=== PATIENT | female | born 1995 | race Hispanic/Latino ===

== ENCOUNTER 2025-03-30 00:43 | Emergency (ER) | payer OTHER ==
--- OUTSIDE RECORDS SUMMARY | 2025-03-30 00:47 | XMS REPORT | Continuity of Care Document ---
Author Name Unknown Address [address] [facility] [address] [place] [address] Organization [facility] [place] Address [address] [facility] 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 Name Role Phone Angelito Stephenson DO Primary Care Physician [phone] Humberto Wilson Attending Clinician + HUMBERTO AKERS Attending Clinician Shabbir Oswald MD Attending Clinician [phone] 1, Gh Attending Clinician Unavailable SHABBIR MARTIN Attending Clinician Unavailable GC_SWHAOMC_Noorudnurys Attending Clinician Unavail able WOLFGANG_JOANNAHAOMC_Noorlyric Admitting Clinician Unavail able Payers Payer Name Policy Type Policy Number Effective Date Expirati on Date Source [facility] CHOICE PLUS COMM [id number] 2024 00:00:00 [facility] [id number] 2022 00:00:00 Allergies, Adverse Reactions, Alerts Allergy Name Allergy Type Status Severity Reaction(s) Onset Date Inactive Date Treating Clinician Comments Source Fluconanilsa zimmerman Propensi ty to adverse reaction s Active Hives 01-11 00:00: 00 Alfonzo Pandey Social History Social Habit Start Date Stop Date Quantity Comments Source Gender identity 2023-09-03 15:18:02 Identifies as female gender (finding) Wang Pandey Sexual orientation [facility] ASSERTION Possible Wang Clementmisty Pandey Alcoholic beverage intake 2024-10-26 00:00:00 2024-10-26 00:00:00 .14 /d [facility] History of Social function 2024-10-26 00:00:00 2024-10-26 00:00:00 [facility] Tobacco use and exposure 2024-06-15 00:00:00 2024-06-15 00:00:00 Smokeless tobacco non-user [facility] Alcohol Comment 2024-06-15 00:00:00 2024-06-15 00:00:00 social drinker [facility] Sex 2023-09-03 15:18:02 2023-09-03 15:18:02 Female (finding) [facility] Smoking Status Start Date Stop Date Source Never smoked tobacco [facility] Medications Ordered Medication Name Filled Medication Name Start Date Stop Date Current Medication? Ordering Clinician Indication Dosage Frequency Signature (SIG) Comments Components Source levoFLOXaci n (Levaquin) 500 MG tablet levoFLOXaci n (Levaquin) 500 MG tablet 10-31 00:00: 00 11-10 23:59 :00 No 500mg QD Take 1 tablet by mouth 1 time each day for 10 days. Alfonzo Vaughan [facility] cefdinir (Omnicef) 300 MG capsule cefdinir (Omnicef) 300 MG capsule 10-26 00:00: 00 11-05 23:59 :00 No 300mg Q.5D Take 1 capsule by mouth in the morning and 1 capsule in the evening. Do all this for 10 days. Alfonzo Vaughan [facility] semaglutide (Ozempic, 1 MG/DOSE,) 4 MG/3ML solution pen-injecto r semaglutide (Ozempic, 1 MG/DOSE,) 4 MG/3ML solution pen-injecto r 06-15 11:09: 56 Yes INJECT ONE (1) MG UNDER THE SKIN ONE TIME PER WEEK. subcutaneo usly once a week for 28 days Alfonzo Vaughan [facility] nitrofurant oin, macrocrysta l-monohydra te, (Macrobid) 100 MG capsule nitrofurant oin, macrocrysta l-monohydra te, (Macrobid) 100 MG capsule 06-15 00:00: 00 Yes 1 tablet jennifer-inter course Alfonzo Vaughan [facility] phenazopyri dine (Pyridium) 100 MG tablet phenazopyri dine (Pyridium) 100 MG tablet 1-03 00:00: 00 06-22 23:59 :00 No 100mg [id number] 3D Take 1 tablet by mouth in the morning and 1 tablet at noon and 1 tablet in the evening. Do all this for 7 days. Alfonzo Vaughan [facility] Adderall 10 MG tablet Adderall 10 MG tablet 2023-06 0 00:00: 00 Yes 10mg Take [facility] [place] [facility] lisdexamfet amine (Vyvanse) 40 MG capsule lisdexamfet amine (Vyvanse) 40 MG capsule 3- 00:00: 00 06-15 00:00 :00 No 1{capsu le} 1 cap(s) orally once a day (in the morning) for 30 day(s) [facility] Macrobid 100 mg capsule Take 1 capsule every 12 hours by oral route for 5 days. Macrobid 100 mg capsule Take 1 capsule every 12 hours by oral route for 5 days. No 1capsul e(s) Q12H Macrobid 100 mg capsule Take 1 capsule every 12 hours by oral route for 5 days. [facility] Ozempic 0.25 mg or 0.5 mg (2 mg/1.5 mL) subcutaneou s pen injector INJECT 0.25 MG SUBCUTANEOU SLY ONCE A WEEK THEN INCREASE TO 0.5 MG ONCE A WEEK. Ozempic 0.25 mg or 0.5 mg (2 mg/1.5 mL) subcutaneou s pen injector INJECT 0.25 MG SUBCUTANEOU SLY ONCE A WEEK THEN INCREASE TO 0.5 MG ONCE A WEEK. No Ozempic 0.25 mg or 0.5 mg (2 mg/1.5 mL) subcutaneo us pen injector INJECT 0.25 MG SUBCUTANEO USLY ONCE A WEEK THEN INCREASE TO 0.5 MG ONCE A WEEK. [facility] Vital Signs Vital Name Observation Time Observation Value Comments S calixto Systolic blood pressure 2024-10-26 10:23:00 137 mm[Hg] [facility] Diastolic blood pressure 2024-10-26 10:23:00 82 mm[Hg] [facility] Epic Heart rate 2024-10-26 10:23:00 90 /min [facility] [place] Epic Body temperature 2024-10-26 10:23:[facility] 2024-10-26 10:23:00 56.881 kg Wolf rial [facility] Epic BMI 2024-10-26 10:23:00 21.52 kg/m2 [facility] Oxygen saturation in Arterial blood by Pulse oximetry 2024-10-26 10:23:00 98 /min [facility] Systolic blood pressure 2024-10-26 10:23:00 137 mm[Hg] [facility] Diastolic blood pressure 2024-10-26 10:23:00 82 mm[Hg] [facility] Heart rate 2024-10-26 10:23:00 90 /min [facility] [place] Epic Body temperature 2024-10-26 10:23:00 37 [facility] Body weight 2024-10-26 10:23:00 56.881 kg Wolf rial [facility] Epic BMI 2024-10-26 10:23:00 21.52 kg/m2 Wolf rial [place] Epic Oxygen saturation in Arterial blood by Pulse oximetry 2024-10-26 10:23:00 98 /min [facility] Systolic blood pressure 2024-07-05 15:35:00 122 mm[Hg] [facility] Diastolic blood pressure 2024-07-05 15:35:00 80 mm[Hg] [facility] Heart rate 2024-07-05 15:35:00 78 /min [facility] Body temperature 2024-07-05 15:35:00 36.89 [facility] Epic Respiratory rate 2024-07-05 15:35:00 22 /min [facility] Body height 2024-07-05 15:35:00 162.6 cm Wolf rial [place] Epic Body weight 2024-07-05 15:35:00 58.605 kg Wolf rial [facility] BMI 2024-07-05 15:35:00 22.18 kg/m2 [facility] Oxygen saturation in Arterial blood by Pulse oximetry 2024-07-05 15:35:00 100 /min [facility] Systolic blood pressure 2024-07-05 15:35:00 122 mm[Hg] [facility] Diastolic blood pressure 2024-07-05 15:35:00 80 mm[Hg] [facility] Heart rate 2024-07-05 15:35:00 78 /min [facility] [place] Epic Body temperature 2024-07-05 15:35:00 36.89 Twyla [facility] Epic Respiratory rate 2024-07-05 15:35:00 22 /min [facility] Body height 2024-07-05 15:35:00 162.6 cm Owlf rial [place] Epic Body weight 2024-07-05 15:35:00 58.605 kg Wolf rial [place] Epic BMI 2024-07-05 15:35:00 22.18 kg/m2 [facility] Oxygen saturation in Arterial blood by Pulse oximetry 2024-07-05 15:35:00 100 /min [facility] Systolic blood pressure 2024-06-15 11:01:00 122 mm[Hg] [facility] Diastolic blood pressure 2024-06-15 11:01:00 80 mm[Hg] [facility] Heart rate 2024-06-15 11:01:00 66 /min [facility] Respiratory rate 2024-06-15 11:01:00 17 /min [facility] Body weight 2024-06-15 11:01:00 72.031 kg Wolf rial [facility] Oxygen saturation in Arterial blood by Pulse oximetry 2024-06-15 11:01:00 100 /min [facility] Systolic blood pressure 2024-06-15 11:01:00 122 mm[Hg] [facility] Diastolic blood pressure 2024-06-15 11:01:00 80 mm[Hg] [facility] Heart rate 2024-06-15 11:01:00 66 /min [facility] [place] Epic Respiratory rate 2024-06-15 11:01:00 17 /min [facility] Body weight 2024-06-15 11:01:00 72.031 kg Wolf rial [place] Epic Oxygen saturation in Arterial blood by Pulse oximetry 2024-06-15 11:01:00 100 /min [facility] Height 2022-08-18 00:00:00 63 [in_i] [facility] BMI (Body Mass Index) 2022-08-18 00:00:00 25.9 kg/m2 [facility] Body Weight 2022-08-18 00:00:00 146 [lb_av] [facility] Procedures Procedure Date / Time Performed Performing Clinician Source Urine Culture 2024-11-02 00:00:00 Alfonzo tovar [facility] URINE CULTURE 2024-10-26 10:59:00 Sarah Akers [facility] POCT URINE DIPSTICK (INTRFC) 2024-10-26 10:40:00 Elida Cage [facility] URINE CULTURE 2024-10-22 10:07:00 Sarah Akers [facility] Urine Culture 2024-09-20 00:00:00 Alfonzo tovar [facility] POCT URINE DIPSTICK (INTRFC) 2024-07-05 15:38:00 Shabbir Martin [facility] US RETROPERITONEUM LIMITED 2024-07-05 15:17:11 Dalton Martin [facility] POCT URINE DIPSTICK (INTRFC) 2024-06-15 10:59:00 Shabbir Martin [facility] US retroperitoneum limited 2024-06-15 00:00:00 [facility] Comprehensive Metabolic Panel 2024-06-15 00:00:00 [facility] Hemoglobin A1c 2024-06-15 00:00:[facility] Complete Blood Count w/Diff and Platelet 2024-06-15 00:00:00 [facility] Urine culture [facility] Culture: Urine, Catheterized [facility] Urine Culture [facility] Plan of Care Planned Activity Planned Date Details Comments Source Diagnostic Test Pending 2022-08-18 00:00:00 unlisted lab [code = unlisted lab] [facility] Diagnostic Test Pending 2022-08-18 00:00:00 Clostridium tetani Ab [Presence] in Serum [code = 5093-0] [facility] Test Pending 2022-08-18 00:00:00 unlisted lab [code = unlisted lab] [facility] Test Pending 2022-08-18 00:00:00 unlisted lab [code = unlisted lab] [facility] Diagnostic Test Pending 2022-08-18 00:00:00 Malonate [Mass/volume] in Serum [code = 2603-9] [facility] Medical Encounters Start Date/Time End Date/Time Encounter Type Admission Type Attending [facility] Care Department Encounter ID Source 2024-10-31 00:00:00 2024-12-31 20:34:22 Results Follow-Up Humberto Akers [place] [address] 1.2.840.114 350.1.13.70 8.2.7.2.686 [id number] [facility]-10-25 00:00:00 2024-12-25 20:33:10 Results Follow-Up Humberto Akers [place] [address] 1.2.840.114 350.1.13.70 8.2.7.2.686 [id number] [facility] 2024-11-02 00:00:00 2024-11-02 09:10:43 Orders Only Humberto Akers [place] [address] [id number] 350.1.13.70 8.2.7.2.686 [id number] [facility] 2024-10-31 00:00:00 2024-10-31 08:48:59 Orders Only Humberto Akers [place] [address]31 1.2.840.114 350.1.13.70 8.2.7.2.686 [id number] [facility] 2024-10-26 10:15:09 2024-10-26 10:54:54 Outpatient Elective HUMBERTO AKERS [facility] [id number] EOUT 2024-10-26 10:00:00 2024-10-26 10:54:54 Office Visit Humberto Akers [place] [address] 1.2.840.114 350.1.13.70 8.2.7.2.686 [id number] Alfonzo tovar [facility] 2024-10-22 00:00:00 2024-10-23 20:44:35 Orders Only Humberto Akers [facility] 1.2.840.114 350.1.13.70 8.2.7.2.686 [id number] Memoria l [facility] 2024-09-20 00:00:00 2024-09-20 09:35:22 Orders Only Humberto Akers [facility] 1.2.840.114 350.1.13.70 8.2.7.2.686 [id number] Memoria la Clement [facility] 2024-06-18 00:00:00 2024-08-18 20:32:16 Results Follow-Up Shabbir Martin [facility] 1631 1.2.840.114 350.1.13.70 8.2.7.2.686 [id number] Memoria la [facility] 2024-07-05 14:41:35 2024-07-05 23:59:00 Outpatient Elective [facility] [id number] [facility] 2024-07-05 14:41:35 2024-07-05 23:59:00 Hospital Encounter 1, [facility] 1.2.840.114 350.1.13.70 8.2.7.2.686 [id number] [facility] 2024-07-05 15:45:00 2024-07-05 16:07:25 Office Visit Shabbir Martin [facility] 1631 1.2.840.114 350.1.13.70 8.2.7.2.686 [id number] Memoria l [facility] 2024-07-05 15:13:35 2024-07-05 16:07:25 Outpatient Elect[facility] [id number] [facility] 2024-06-15 11:00:00 2024-06-15 11:51:13 Consult Shabbir Martin [facility] 1631 1.2.840.114 350.1.13.70 8.2.7.2.686 [id number] Alfonzo tovar [facility] 2024-06-15 10:56:46 2024-06-15 11:51:13 Outpatient Elective [facility]ARTIN [facility] [id number] EOUT 2022-08-18 00:00:00 2022-08-18 00:00:00 Sully Romeo MD: [address] [place] [address], [address], [place] [address] , Ph. [facility] [id number] [facility] Medical Results Test Description Test Time Test Comments Results Result Co mments Source [facility] SocMetricsPOCT Urine Dipstick (INTRFC)2024-07-05 15:41:00* Test Item Value Reference Range Interpretation Comme nts POC UA Turbid (test code = 3180) Clear Clear POC UA Color (test code = 3179) Yellow Yellow POC UA pH (test code = 3187) 5.0-8.0 POC UA SG (test code = 3186) See_Comment [Automated No.1 Travellera ge] The system which generated this result transmitted reference range: <1.005 - 1.025. The reference range was not used to interpret this result as normal/abnormal. POC UA Glu (test code = 3181) Negative Negative mg/dL POC UA Bld (test code = 3192) Negative Negative POC UA Ket (test code = 3185) Negative Negative mg/dL POC UA Protein (test code = 3188) Negative Negative mg/dL POC UA Uro (test code = 3189) See_Comment [Automated No.1 Travellera ge] The system which generated this result transmitted reference range: 0.1 - 1.0 E.U./dL. The reference range was not used to interpret this result as normal/abnormal. POC UA Bili (test code = 3184) Negative Negative POC UA Leuk Est (test code = 3191) Negative Negative POC UA Nit (test code = 3190) Negative Negative POC Device (test code = 3198) POC Oper ID (test code = 3197) POC Performing Location (test code = 3249) [facility]2024-06-15 11:06:00* Test Item Value Reference Range Interpretation Comme nts POC UA Turbid (test code = 3180) Clear Clear POC UA Color (test code = 3179) Yellow Yellow POC UA pH (test code = 3187) 5.0-8.0 POC UA SG (test code = 3186) <=1.005 See_Comment [Automated No.1 Travellera Diffbot] The system which generated this result transmitted reference range: <1.005 - 1.025. The reference range was not used to interpret this result as normal/abnormal. POC UA Glu (test code = 3181) 250 mg/dL Negative A POC UA Bld (test code = 3192) Negative Negative POC UA Ket (test code = 3185) Trace Negative mg/dL A POC UA Protein (test code = 3188) >=300 Negative mg/dL A POC UA Uro (test code = 3189) >=8.0 See_Comment A [Automated No.1 Travellera Diffbot] The system which generated this result transmitted reference range: 0.1 - 1.0 E.U./dL. The reference range was not used to interpret this result as normal/abnormal. POC UA Bili (test code = 3184) Small Negative A POC UA Leuk Est (test code = 3191) Large Negative A POC UA Nit (test code = 3190) Positive Negative A POC Device (test code = 3198) POC Oper ID (test code = 3197) POC Performing Location (test code = 3249) [facility] Lab Interpretation (test code = 54944-4) Abnormal [facility] Notes Upcoming Encounters Date/Time Note Provider Source Health Maintenance Due Date Last Done Comments Varicella Vaccines (1 of 2 - 13+ 2-dose series) 2010 DTaP/Tdap/Td Vaccines (1 - Tdap) 02/23/2016 Hepatitis B Vaccines (1 of 3 - 19+ 3-dose series) 02/23/2016 Pap Smear 2018 HPV Vaccines (1 - 3-dose SCD M series) 02/23/2024 Influenza Vaccine (#1) 2025 Annual Physical 06/15/2025 06/15/2024 Respiratory Syncytial Virus (RSV) Adult Series (1 - 1-dose 75+ series) 02/23/2072 HIB Vaccines Aged Out No longer eligi ble based on patient's age to complete this topic Hepatitis A Vaccines Aged Out No long er eligible based on patient's age to complete this topic IPV Vaccines Aged Out No longer eligi ble based on patient's age to complete this topic Meningococcal Vaccine Aged Out No sarah pastora eligible based on patient's age to complete this topic Pneumococcal Vaccine: Pediat rics (0 to 5 Years) and At-Risk Patients (6 to 64 Years) Aged Out No longer eligible b ased on patient's age to complete this topic Rotavirus Vaccines Aged Out No longer eligible based on patient's age to complete this topic [facility] [id number] 20:34:56 [facility] CenterPbycana9213-08-13 20:37:42Upcoming Encounters Health Maintenance Due Date Last Done Comments Varicella Vaccines (1 of 2 - 13+ 2-dose series) 2010 DTaP/Tdap/Td Vaccines (1 - Tdap) 02/23/2016 Hepatitis B Vaccines (1 of 3 - 19+ 3-dose series) 02/23/2016 Pap Smear 2018 HPV Vaccines (1 - 3-dose SCD M series) 02/23/2024 Influenza Vaccine (#1) 2025 Annual Physical 06/15/2025 06/15/2024 Respiratory Syncytial Virus (RSV) Adult Series (1 - 1-dose 75+ series) 02/23/2072 HIB Vaccines Aged Out No longer eligi ble based on patient's age to complete this topic Hepatitis A Vaccines Aged Out No long er eligible based on patient's age to complete this topic IPV Vaccines Aged Out No longer eligi ble based on patient's age to complete this topic Meningococcal Vaccine Aged Out No sarah pastora eligible based on patient's age to complete this topic Pneumococcal Vaccine: Pediat rics (0 to 5 Years) and At-Risk Patients (6 to 64 Years) Aged Out No longer eligible b ased on patient's age to complete this topic Rotavirus Vaccines Aged Out No longer eligible based on patient's age to complete this topic [facility] [id number] 20:37:42 [facility] [id number] 09:10:54Upcoming Encounters Scheduled Orders Name Type Priority Associated Diagnoses Orde r Schedule Urine Culture Microbiology Routine Urinary urgency Expe cted: 11/02/2024 (Approximate), Expires: 11/02/2025 Health Maintenance Due Date Last Done Comments Varicella Vaccines (1 of 2 - 13+ 2-dose series) 2010 DTaP/Tdap/Td Vaccines (1 - Tdap) 02/23/2016 Hepatitis B Vaccines (1 of 3 - 19+ 3-dose series) 02/23/2016 Pap Smear 2018 Influenza Vaccine (Season Ended) 2025 Annual Physical 06/15/2025 06/15/2024 Respiratory Syncytial Virus (RSV) Adult Series (1 - 1-dose 75+ series) 02/23/2072 HIB Vaccines Aged Out No longer eligi ble based on patient's age to complete this topic HPV Vaccines Aged Out No longer eligi ble based on patient's age to complete this topic Hepatitis A Vaccines Aged Out No long er eligible based on patient's age to complete this topic IPV Vaccines Aged Out No longer eligi ble based on patient's age to complete this topic Meningococcal Vaccine Aged Out No sarah pastora eligible based on patient's age to complete this topic Pneumococcal Vaccine: Pediat rics (0 to 5 Years) and At-Risk Patients (6 to 64 Years) Aged Out No longer eligible b ased on patient's age to complete this topic Rotavirus Vaccines Aged Out No longer eligible based on patient's age to complete this topic [facility] [id number] 09:10:54 Diagnosis Urinary urgency - Primary Urgency of urination [facility] [id number] 09:10:54 [facility] [id number] 08:49:08Upcoming Encounters Health Maintenance Due Date Last Done Comments Varicella Vaccines (1 of 2 - 13+ 2-dose series) 2010 DTaP/Tdap/Td Vaccines (1 - Tdap) 02/23/2016 Hepatitis B Vaccines (1 of 3 - 19+ 3-dose series) 02/23/2016 Pap Smear 2018 Influenza Vaccine (Season Ended) 2025 Annual Physical 06/15/2025 06/15/2024 Respiratory Syncytial Virus (RSV) Adult Series (1 - 1-dose 75+ series) 02/23/2072 HIB Vaccines Aged Out No longer eligi ble based on patient's age to complete this topic HPV Vaccines Aged Out No longer eligi ble based on patient's age to complete this topic Hepatitis A Vaccines Aged Out No long er eligible based on patient's age to complete this topic IPV Vaccines Aged Out No longer eligi ble based on patient's age to complete this topic Meningococcal Vaccine Aged Out No sarah pastora eligible based on patient's age to complete this topic Pneumococcal Vaccine: Pediat rics (0 to 5 Years) and At-Risk Patients (6 to 64 Years) Aged Out No longer eligible b ased on patient's age to complete this topic Rotavirus Vaccines Aged Out No longer eligible based on patient's age to complete this topic [facility] [id number] 08:49:08 [facility] CenterXnzgdip2423-04-15 13:27:25* [facility] [id number] 13:27:25* LEO Hernandez - 10/26/2024 10:00 AM CDT Subjective Patient ID: Yara Morales is a 29 y.o. female who presents for UTI (Concern with burning sensation,). UTI Patient presents today with urinary tract infection symptoms, specifically dysuria and urinary urgency/frequency. Patient dropped off a urine sample that was negative, mixed genital sid. Her symptoms persist and have gotten worse so she reports today. To review, patient has history of 2 kidney infections. Patient is sexuallyactive and now thinks her urinary tract infections are associated with sexual intercourse. ROS: Negative unless otherwise noted in HPI ObjectivePhysical Exam: Vitals and nursing note reviewed. Constitutional: Appearance: Normal appearance. HENT: Head: Normocephalic and atraumatic. Nose: Nose normal. Mouth/Throat: Mouth: Mucous membranes are moist. Pharynx: Oropharynx is clear. Eyes: Conjunctiva/sclera: Conjunctivae normal. Pupils: Pupils are equal, round, and reactive to light. Cardiovascular: Rate and Rhythm: Normal rate and regular rhythm. Pulmonary: Effort: Pulmonary effort is normal. Breath sounds: Normal breath sounds. Abdominal: General: Abdomen is flat. Palpations: Abdomen is soft. Musculoskeletal: General: Normal range of motion. Cervical back: Normal range of motion and neck supple. Skin: General: Skin is warm and dry. Neurological: General: No focal deficit present. Mental Status: She is alert and oriented to person, place, and time. Psychiatric: Mood and Affect: Mood normal. Behavior: Behavior normal. Assessment & PlanRecurrent UTI The patient has recurrent urinary tract infections which number more than 3/year which makes this complicated this will need imaging including upper and lower tract evaluation with a ultrasound and cystoscopy respectively. Discussion was made with the patient concerning the etiology of urinary tract infections and the various risk factors associated with this. Behavioral therapy will be initiated first but a prescription for Macrobid will also be sent to the pharmacy for new onset infections. If the symptoms do not improve within 72 hours then a urine will need to be dropped off for culture. Patient's urine today is positive for nitrites. I have prescribed cefdinir to be taken x 10 days. Orders: POCT Urine Dipstick (INTRFC) Urine culture; Future Other orderscefdinir (Omnicef) 300 MG capsule; Take 1 capsule by mouth in the morning and 1 capsule in the evening. Do all this for 10 days. [facility] [id number] 13:27:25Upcoming Encounters Pending Results Name Type Priority Associated Diagnoses Date /Time Urine culture Microbiology Routine Recurrent UTI 2024 10:59 AM CDT Health Maintenance Due Date Last Done Comments Varicella Vaccines (1 of 2 - 13+ 2-dose series) 2010 DTaP/Tdap/Td Vaccines (1 - Tdap) 02/23/2016 Hepatitis B Vaccines (1 of 3 - 19+ 3-dose series) 02/23/2016 Pap Smear 2018 Influenza Vaccine (Season Ended) 2025 Annual Physical 06/15/2025 06/15/2024 Respiratory Syncytial Virus (RSV) Adult Series (1 - 1-dose 75+ series) 02/23/2072 HIB Vaccines Aged Out No longer eligi ble based on patient's age to complete this topic HPV Vaccines Aged Out No longer eligi ble based on patient's age to complete this topic Hepatitis A Vaccines Aged Out No long er eligible based on patient's age to complete this topic IPV Vaccines Aged Out No longer eligi ble based on patient's age to complete this topic Meningococcal Vaccine Aged Out No sarah pastora eligible based on patient's age to complete this topic Pneumococcal Vaccine: Pediat rics (0 to 5 Years) and At-Risk Patients (6 to 64 Years) Aged Out No longer eligible b ased on patient's age to complete this topic Rotavirus Vaccines Aged Out No longer eligible based on patient's age to complete this topic [facility] [id number] 13:27:25 Diagnosis Recurrent UTI Urinary tract infection, site not specified [facility] [id number] 13:27:25 [facility] [id number] 13:27:25* [facility] [id number] 13:27:25* LEO Hernandez - 10/26/2024 10:00 AM CDT Subjective Patient ID: Yara Morales is a 29 y.o. female who presents for UTI (Concern with burning sensation,). UTI Patient presents today with urinary tract infection symptoms, specifically dysuria and urinary urgency/frequency. Patient dropped off a urine sample that was negative, mixed genital sid. Her symptoms persist and have gotten worse so she reports today. To review, patient has history of 2 kidney infections. Patient is sexuallyactive and now thinks her urinary tract infections are associated with sexual intercourse. ROS: Negative unless otherwise noted in HPI ObjectivePhysical Exam: Vitals and nursing note reviewed. Constitutional: Appearance: Normal appearance. HENT: Head: Normocephalic and atraumatic. Nose: Nose normal. Mouth/Throat: Mouth: Mucous membranes are moist. Pharynx: Oropharynx is clear. Eyes: Conjunctiva/sclera: Conjunctivae normal. Pupils: Pupils are equal, round, and reactive to light. Cardiovascular: Rate and Rhythm: Normal rate and regular rhythm. Pulmonary: Effort: Pulmonary effort is normal. Breath sounds: Normal breath sounds. Abdominal: General: Abdomen is flat. Palpations: Abdomen is soft. Musculoskeletal: General: Normal range of motion. Cervical back: Normal range of motion and neck supple. Skin: General: Skin is warm and dry. Neurological: General: No focal deficit present. Mental Status: She is alert and oriented to person, place, and time. Psychiatric: Mood and Affect: Mood normal. Behavior: Behavior normal. Assessment & PlanRecurrent UTI The patient has recurrent urinary tract infections which number more than 3/year which makes this complicated this will need imaging including upper and lower tract evaluation with a ultrasound and cystoscopy respectively. Discussion was made with the patient concerning the etiology of urinary tract infections and the various risk factors associated with this. Behavioral therapy will be initiated first but a prescription for Macrobid will also be sent to the pharmacy for new onset infections. If the symptoms do not improve within 72 hours then a urine will need to be dropped off for culture. Patient's urine today is positive for nitrites. I have prescribed cefdinir to be taken x 10 days. Orders: POCT Urine Dipstick (INTRFC) Urine culture; Future Other orderscefdinir (Omnicef) 300 MG capsule; Take 1 capsule by mouth in the morning and 1 capsule in the evening. Do all this for 10 days. [facility] [id number] 13:27:25Upcoming Encounters Pending Results Name Type Priority Associated Diagnoses Date /Time Urine culture Microbiology Routine Recurrent UTI 2024 10:59 AM CDT Health Maintenance Due Date Last Done Comments Varicella Vaccines (1 of 2 - 13+ 2-dose series) 2010 DTaP/Tdap/Td Vaccines (1 - Tdap) 02/23/2016 Hepatitis B Vaccines (1 of 3 - 19+ 3-dose series) 02/23/2016 Pap Smear 2018 Influenza Vaccine (Season Ended) 2025 Annual Physical 06/15/2025 06/15/2024 Respiratory Syncytial Virus (RSV) Adult Series (1 - 1-dose 75+ series) 02/23/2072 HIB Vaccines Aged Out No longer eligi ble based on patient's age to complete this topic HPV Vaccines Aged Out No longer eligi ble based on patient's age to complete this topic Hepatitis A Vaccines Aged Out No long er eligible based on patient's age to complete this topic IPV Vaccines Aged Out No longer eligi ble based on patient's age to complete this topic Meningococcal Vaccine Aged Out No sarah pastora eligible based on patient's age to complete this topic Pneumococcal Vaccine: Pediat rics (0 to 5 Years) and At-Risk Patients (6 to 64 Years) Aged Out No longer eligible b ased on patient's age to complete this topic Rotavirus Vaccines Aged Out No longer eligible based on patient's age to complete this topic [facility] [id number] 13:27:25 Diagnosis Recurrent UTI Urinary tract infection, site not specified [facility] [id number] 13:27:25 [facility] [id number] 20:45:53Pending Results Health Maintenance Due Date Last Done Comments Varicella Vaccines (1 of 2 - 13+ 2-dose series) 2010 DTaP/Tdap/Td Vaccines (1 - Tdap) 02/23/2016 Hepatitis B Vaccines (1 of 3 - 19+ 3-dose series) 02/23/2016 Pap Smear 2018 Influenza Vaccine (Season Ended) 2025 Annual Physical 06/15/2025 06/15/2024 Respiratory Syncytial Virus (RSV) Adult Series (1 - 1-dose 75+ series) 02/23/2072 HIB Vaccines Aged Out No longer eligi ble based on patient's age to complete this topic HPV Vaccines Aged Out No longer eligi ble based on patient's age to complete this topic Hepatitis A Vaccines Aged Out No long er eligible based on patient's age to complete this topic IPV Vaccines Aged Out No longer eligi ble based on patient's age to complete this topic Meningococcal Vaccine Aged Out No sarah pastora eligible based on patient's age to complete this topic Pneumococcal Vaccine: Pediat rics (0 to 5 Years) and At-Risk Patients (6 to 64 Years) Aged Out No longer eligible b ased on patient's age to complete this topic Rotavirus Vaccines Aged Out No longer eligible based on patient's age to complete this topic [facility] [id number] 20:45:53 [facility] [id number] 09:35:27Scheduled Orders Health Maintenance Due Date Last Done Comments Varicella Vaccines (1 of 2 - 13+ 2-dose series) 2010 DTaP/Tdap/Td Vaccines (1 - Tdap) 02/23/2016 Hepatitis B Vaccines (1 of 3 - 19+ 3-dose series) 02/23/2016 Pap Smear 2018 Influenza Vaccine (Season Ended) 2025 Annual Physical 06/15/2025 06/15/2024 Respiratory Syncytial Virus (RSV) Adult Series (1 - 1-dose 75+ series) 02/23/2072 HIB Vaccines Aged Out No longer eligi ble based on patient's age to complete this topic HPV Vaccines Aged Out No longer eligi ble based on patient's age to complete this topic Hepatitis A Vaccines Aged Out No long er eligible based on patient's age to complete this topic IPV Vaccines Aged Out No longer eligi ble based on patient's age to complete this topic Meningococcal Vaccine Aged Out No sarah pastora eligible based on patient's age to complete this topic Pneumococcal Vaccine: Pediat rics (0 to 5 Years) and At-Risk Patients (6 to 64 Years) Aged Out No longer eligible b ased on patient's age to complete this topic Rotavirus Vaccines Aged Out No longer eligible based on patient's age to complete this topic [facility] [id number] 09:35:27 Diagnosis Recurrent UTI - Primary Urinary tract infection, site not specified [facility] [id number] 09:35:27 [facility] [id number] 20:33:02 [facility] [id number] 20:33:02 [facility] [id number] 00:36:28 [facility] [id number] 00:36:28 Diagnosis Recurrent UTI Urinary tract infection, site not specified [facility] CenterAxwglrs0710-22-55 00:36:28 [facility] [id number] 16:16:42 Diagnosis Recurrent UTI Urinary tract infection, site not specified [facility] [id number] 16:16:42 [facility] [id number] 16:16:42* * Consultation (Routine) - Authorized Specialty Diagnoses / Procedures Referred By Contac t Referred To Contact Urology Diagnoses Urgency of urination cysto Procedures ID CYSTOURETHROSCOPY CYSTOSCOPY - UROLOGY Shabbir Martin MD [facility] [address] Phone: tel: fax: Shabbir Martin MD [address] [address] Phone: tel: fax: Referral ID Status Reason Start Date Expiration Date V isits Requested Visits Authorized [id number] Authorized 06/26/2024 07/26/2024 1 1 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 Ultrasound (07/05/2024) pending REVIEW OF SYSTEMS: Negative, otherwise as per the HPI PHYSICAL EXAMINATION: The patient was placed in supine position and the genital area was prepped with chlorhexidine and viscous lidocaine. A flexible cystoscope was passed into the meatus and guided into the bladder. Pancystoscopy was performed showing no mucosal abnormalities. The scope was removed atraumatically and the patient tolerated the procedure well. Assessment/plan: 1. Recurrent urinary tract infection (N39.0) The lower tract shows no signs of pathology and the ultrasound is currently pending. Continue prophylactic Macrobid and the patient will be reassessed in 4 months. 2. Urinary urgency and incontinence (R39.15) The patient appears to have some form of irritative urinary symptoms possibly overactive bladder however with the glucose urea and ketones, she may also have prediabetes. The patient should monitor her glucose levels since this can exacerbate her symptoms. MACHINE TENDER [id number] 16:16:42 [facility] [id number] 16:16:42 Diagnosis Recurrent UTI Urinary tract infection, site not specified [id number] 16:16:42 [facility] [id number] 16:16:42* * Consultation (Routine) - Authorized Specialty Diagnoses / Procedures Referred By Contac t Referred To Contact Urology Diagnoses Urgency of urination cysto Procedures ID CYSTOURETHROSCOPY CYSTOSCOPY - UROLOGY Shabbir Martin MD [address] [address] Phone: tel: fax: Shabbir Martin MD [address] [place] [address] Phone: tel: fax: Referral ID Status Reason Start Date Expiration Date V isits Requested Visits Authorized [id number] Authorized 06/26/2024 07/26/2024 1 1 [facility] [id number] 16:16:42* Shabbir Martin MD - 07/05/2024 3:45 PM 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 Ultrasound (07/05/2024) pending REVIEW OF SYSTEMS: Negative, otherwise as per the [facility] PHYSICAL EXAMINATION: The patient was placed in supine position and the genital area was prepped with chlorhexidine and viscous lidocaine. A flexible cystoscope was passed into the meatus and guided into the bladder. Pancystoscopy was performed showing no mucosal abnormalities. The scope was removed atraumatically and the patient tolerated the procedure well. Assessment/plan: 1. Recurrent urinary tract infection (N39.0) The lower tract shows no signs of pathology and the ultrasound is currently pending. Continue prophylactic Macrobid and the patient will be reassessed in 4 months. 2. Urinary urgency and incontinence (R39.15) The patient appears to have some form of irritative urinary symptoms possibly overactive bladder however with the glucose urea and ketones, she may also have prediabetes. The patient should monitor her glucose levels since this can exacerbate her symptoms. MACHINE TENDER [facility] [id number] 16:16:42 [facility] [id number] 12:08:05* [facility] [id number] 12:08:05* Shabbir Martin MD - 06/15/2024 11:00 AM MAT MACHINE TENDER CHIEF COMPLAINT: Chief Complaint Patient presents with Consult Recurrent UTI HISTORY OF PRESENT ILLNESS: This is a 29-year-old woman with recurrent urinary tract infections over the last 1-1/2 years. She has had 2 kidney infections as well and did require hospitalization. By report, there has been resistance to certain antibiotics recently in the urine cultures. The patient is sexually active but states the infections do not always occur within 48 hours of intercourse. During the episodes of urinary tract infections, the patient does have dysuria and frequency, but also has urgency as a baseline with rare incontinence. She denies any dyspareunia but has noted a vaginal discharge which is currently being worked up for STI. PAST MEDICAL HISTORY:Significant for none Past Medical History: Diagnosis Date Urinary tract infection reoccurring/chronic PAST SURGICAL HISTORY: History reviewed. No pertinent surgical history. Significant for none FAMILY HISTORY:No family history on file. ALLERGIES:Allergies Allergen Reactions Fluconazole Hives MEDICATIONS: Current Outpatient Medications on File Prior to Visit Medication Sig Adderall 10 MG tablet Take 10 mg by mouth. semaglutide (Ozempic, 1 MG/DOSE,) 4 MG/3ML solution pen-injector INJECT ONE (1) MG UNDER THE SKIN ONE TIME PER WEEK. subcutaneously once a week for 28 days (Patient not taking: Reported on 06/15/2024) [DISCONTINUED] lisdexamfetamine (Vyvanse) 40 MG capsule 1 cap(s) orally once a day (in the morning) for 30 day(s) No current facility-administered medications on file prior to visit. SOCIAL HISTORY: Social History Socioeconomic HistoryMarital status: Never Spouse name: Not on file Number of children: Not on file Years of education: Not on file Highest education level: Not on file Occupational History Not on file Tobacco Use Smoking status: Never Smokeless tobacco: Never Substance and Sexual Activity Alcohol use: Yes Alcohol/week: 1.0 standard drink of alcohol Types: 1 Standard drinks or equivalent per week Comment: social drinker Drug use: Not Currently Sexual activity: Yes Partners: Male control/protection: Emergency Contraception, None Other Topics Concern Not on file Social History Narrative Not on file Social Drivers of Health Financial Resource Strain: Not on fileFood Insecurity: Not on file Transportation Needs: Not on file Physical Activity: Not on file Stress: Not on file Social Connections: Not on file Intimate Partner Violence: Not on file Housing Stability: Not on file REVIEW OF SYSTEMS: Negative, otherwise as per the HPI PHYSICAL EXAMINATION:Visit Vitals BP 122/80 (BP Location: Right arm, Patient Position: Sitting, BP Cuff Size: Adult) Pulse 66 Resp 17 General Appearance: Well appearing, well developed, well nourished, well hydrated, good color, and in no acute distress Head: Normocephalic atraumatic Chest Wall: No retractions Abdomen: soft, non-tender, non-distended, no HSM, and no mass Musculoskeletal: No obvious deformity. Moves all 4 extremities, stable gait. Genitourinary no masses, urethra has no hypermobility or lesions Lymph: No cervical, axillary or inguinal lymphadenopathy Extremities: Symmetric, no obvious defect, and no cyanosis/clubbing/edema. Neurologic: Alert/appropriate, normal strength, normal tone, and CN II-XII grossly intact. Clear speech, aao x 3. Skin: No nevus no lesions no rash. No jaundice. Psych: Mood congruent affect, responds appropriately to questions. The vaginal area was prepped sterilely and an 8 Fr urethral catheter was passed through the meatus into the bladder Urine was orange-tinged and the PVR was 10 mL LABORATORY DATA:None DIAGNOSTIC STUDIES:No images are attached to the encounter. IMPRESSION:This is a 29-year-old woman with recurrent urinary tract infections as well as baseline urinary urgency and incontinence. Today the urinalysis does show signs of glucosuria, ketones, bilirubin and protein. PLAN:1. Recurrent urinary tract infection (N39.0) The patient will need a complete workup including upper tract imaging with an ultrasound as well as cystoscopy in the office. Catheterized urine today will be sent for culture due to the presence of leukocyte esterase and nitrates. 2. Urinary urgency and incontinence (R39.15)The patient appears to have some form of irritative urinary symptoms possibly overactive bladder however with the glucose urea and ketones, she may also have prediabetes. Full labs will be ordered including a comprehensive blood test as well as hemoglobin A1c. The high proteins and urobilinogens will be assessed with the ultrasound as well. 3. Vaginal discharge (N89.8)The patient currently has a workup for STI. The results will need to be followed up to ensure there is no active infection. [facility]2025-01-03 12:08:05Upcoming Encounters Scheduled Orders Name Type Priority Associated Diagnoses Orde r Schedule Culture: Urine, Catheterized Lab Routine Recurrent UTI Ordered: 025 US retroperitoneum limited Imaging Routine Recurrent UTI Expected: 06/15/2024, Expires: 06/15/2025 Comprehensive Metabolic Panel Lab Routine Recurrent UTI Expected: 2024 (Approximate), Expires: 06/15/2025 Hemoglobin A1c Lab Routine Recurrent UTI Expecte d: 06/15/2024 (Approximate), Expires: 06/15/2025 Complete Blood Count w/Diff and Platelet Lab Routine Recurrent UTI Expected: 2024 (Approximate), Expires: 06/15/2025 Health Maintenance Due Date Last Done Comments Varicella Vaccines (1 of 2 - 13+ 2-dose series) 2010 DTaP/Tdap/Td Vaccines (1 - Tdap) 02/23/2016 Hepatitis B Vaccines (1 of 3 - 19+ 3-dose series) 02/23/2016 Pap Smear 2018 Influenza Vaccine (#1) 2024 Annual Physical 06/15/2025 06/15/2024 HIB Vaccines Aged Out No longer eligi ble based on patient's age to complete this topic HPV Vaccines Aged Out No longer eligi ble based on patient's age to complete this topic Hepatitis A Vaccines Aged Out No long er eligible based on patient's age to complete this topic IPV Vaccines Aged Out No longer eligi ble based on patient's age to complete this topic Meningococcal Vaccine Aged Out No sarah pastora eligible based on patient's age to complete this topic Pneumococcal Vaccine: Pediat rics (0 to 5 Years) and At-Risk Patients (6 to 64 Years) Aged Out No longer eligible b ased on patient's age to complete this topic Rotavirus Vaccines Aged Out No longer eligible based on patient's age to complete this topic Wang [id number] 12:08:05 Diagnosis Urinary urgency - Primary Urgency of urination Recurrent UTI Urinary tract infection, site not specified Vaginal discharge Leukorrhea, not specified as infective Wang [id number] 12:08:05 Wang Vaughan
[2025-03-30 02:32] LABS: Sqamous Epithelial <5 /HPF (None Seen); Urine Culture Reflex Order NOT NEEDED; Urine Microscopic Reflex YN ORDER UMIC; Urine WBC Clump Rare /HPF (None Seen); Urine Yeast (Budding) Trace /HPF (None Seen)
--- NOTE | 2025-03-30 02:40 | EDPHYS ---
Physician Documentation [facility] Name: Yara Morales Age: 30 yrs Sex: Female : 1995 Arrival Date: 03/30/2025 Time: 00:43 Bed DX4 Private MD: ED Physician Neftali Florian HPI: 03/30 01:30 This 30 yrs old Female presents to ER via Ambulatory with complaints of Pain cp With Urination, Low Back Pain. 01:30 The patient presents with urinary symptoms, dysuria. Onset: The symptoms/episode cp began/occurred 1.5 week(s) ago. Associated signs and symptoms: Pertinent negatives: diarrhea, fever, vaginal bleeding, vaginal discharge, vomiting. Severity of symptoms: in the emergency department the symptoms are unchanged, despite home interventions. Historical: - Allergies: 01:17 Bactrim; ha1 01:17 FLUCONAZOLE; ha1 01:17 Nitrofurantoin; ha1 - Immunization history:: Adult Immunizations up to date. - Infectious Disease History:: Denies. - Social history:: Smoking status: Patient denies any tobacco usage or history of. ROS: 01:33 : Positive for burning with urination, Negative for vaginal bleeding, vaginal cp discharge, 01:33 Constitutional: Negative for fever, poor PO intake, cp 01:33 Eyes: Negative for injury, pain, redness, and discharge, cp 01:33 Respiratory: Negative for cough, wheezing, 01:33 Abdomen/GI: Negative for vomiting, diarrhea, constipation, 01:33 Neuro: Positive for dizziness, 01:33 All other systems are negative, Exam: 01:35 Constitutional: The patient appears in no acute distress, alert, awake, comfortable, cp non-toxic, well developed, well nourished, 01:35 Head/Face: Normocephalic, atraumatic. cp 01:35 Eyes: Periorbital structures: appear normal, Conjunctiva: normal, no exudate, no injection, Sclera: no appreciated abnormality, Lids and lashes: appear normal, bilaterally, 01:35 ENT: External ear(s): are unremarkable, Nose: is normal, Mouth: Lips: moist, Oral mucosa: moist, Posterior pharynx: Airway: no evidence of obstruction, patent, 01:35 Chest/axilla: Inspection: normal, 01:35 Cardiovascular: Rate: normal, 01:35 Respiratory: the patient does not display signs of respiratory distress, Respirations: normal, no use of accessory muscles, no retractions, 01:35 Abdomen/GI: Inspection: abdomen appears normal, Palpation: soft, in all quadrants, mild abdominal tenderness, in the suprapubic area, 01:35 Back: CVA tenderness, is absent, Vital Signs: 01:09 BP 129 / 81; Pulse 78; Resp 18 S; Temp 97.8(O); Pulse Ox 100% on R/A; Weight 56.7 kg; ha1 Height 5 ft. 3 in. ; 01:09 Body Mass Index 22.14 (56.70 kg, 160.02 cm) ha1 MDM: 01:14 Medical Screening Exam initiated cp 02:00 Differential diagnosis: cervicitis, ectopic , pelvic inflammatory disease, cp urinary tract infection, vaginosis. 02:40 Data reviewed: vital signs, nurses notes, lab test result(s), and as a result, I will cp discharge patient. 02:40 Counseling: I had a detailed discussion with the patient and/or guardian regarding the cp historical points, exam findings, and any diagnostic results supporting the discharge/admit diagnosis, lab results, to return to the emergency department if symptoms worsen or persist or if there are any questions or concerns that arise at home. 03/30 01:01 Order name: UA Rfx Charanjit Cult if indicated; Complete Time: 02:38 cp 03/30 02:39 Interpretation: Reviewed. cp 03/30 01:01 Order name: Test, Urine; Complete Time: 02:38 cp Administered Medications: No medications were administered Disposition: 06:06 Co-signature as Attending Physician, Neftali Florian DO I reviewed the patient's care tt7 provided by the Advanced Practice Provider and agree with the diagnosis and treatment plan. Disposition Summary: 03/30/25 02:40 Discharge Ordered Notes: Location: Home cp Problem: new cp Symptoms: are unchanged cp Condition: Stable cp Diagnosis - Dysuria cp Followup: cp - With: Private Physician - When: 2 - 3 days - Reason: Worsening of condition Discharge Instructions: - Discharge Summary Sheet cp - Dysuria cp Forms: - Medication Reconciliation Form cp - Antibiotic Education cp - Prescription Opioid Use cp - Patient Portal Instructions cp - Leadership Thank You Letter cp Prescriptions: - Cephalexin 500 mg Oral capsule - take 1 capsule ORAL route every 8 hours for 7 days; 21 capsule; Refills: 0, cp Product Selection Permitted - Pyridium 200 mg Oral tablet - take 1 tablet ORAL route every 8 hours for 2 days; 6 tablet; Refills: 0, cp Product Selection Permitted Signatures: Dispatcher [employer] EDMS Niko Irvin PA-C PA-C cp Ayala, Heidy, RN RN ha1 Neftali Florian, DO tt7 Corrections: (The following items were deleted from the chart) 01:01 01:01 UA Rfx Charanjit Cult if indicated+U.LAB.BRZ ordered. EDMS EDMS 01:01 01:01 Test, Urine+UC.LAB.BRZ ordered. EDMS EDMS 01:19 01:17 Allergies: No Known Allergies; ha1 ha1
--- NOTE | 2025-03-30 02:40 | ER ---
Nurse's Notes [facility] Name: Yara Morales Age: 30 yrs Sex: Female : 1995 Arrival Date: 03/30/2025 Time: 00:43 Bed DX4 Private MD: Diagnosis: Dysuria Presentation: 03/30 01:09 Chief complaint: Patient states: BURNING WITH URINATION FOR A WEEK . FEELING NAUSEA. ha1 01:09 Coronavirus screen: Client denies travel out of the [place] in the last 14 days. Ebola ha1 Screen: No symptoms or risks identified at this time. Initial Sepsis Screen: Does the patient meet any 2 criteria? No. Patient's initial sepsis screen is negative. Does the patient have a suspected source of infection? No. Patient's initial sepsis screen is negative. Risk Assessment: Do you want to hurt yourself or someone else? Patient reports no desire to harm self or others. Onset of symptoms was March 22, 2025. 01:09 Method Of Arrival: Ambulatory ha1 01:09 Acuity: SUYAPA 4 ha1 Triage Assessment: 01:17 General: Appears comfortable, Behavior is calm, cooperative. Pain: Complains of pain in ha1 BURNING WITH URINATION Pain currently is 8 out of 10 on a pain scale. Quality of pain is described as burning. Neuro: Level of Consciousness is awake, alert, obeys commands, Oriented to person, place, time, situation. Cardiovascular: Capillary refill < 3 seconds Patient's skin is warm and dry. Respiratory: Airway is patent Respiratory effort is even, unlabored, Respiratory pattern is regular, symmetrical. Historical: - Allergies: 01:17 Bactrim; ha1 01:17 FLUCONAZOLE; ha1 01:17 Nitrofurantoin; ha1 - Immunization history:: Adult Immunizations up to date. - Infectious Disease History:: Denies. - Social history:: Smoking status: Patient denies any tobacco usage or history of. Screenin:00 Abuse screen: Denies threats or abuse. Denies injuries from another. ha1 03:00 [facility] ED Fall Risk Assessment (Adult) History of falling in the last 3 months, ha1 including since admission No falls in past 3 months (0 pts) Confusion or Disorientation No (0 pts) Intoxicated or Sedated No (0 pts) Impaired Gait No (0 pts) Mobility Assist Device Used No (0 pt) Altered Elimination No (0 pt) Score/Fall Risk Level 0 - 2 = Low Risk Oriented to surroundings, Maintained a safe environment, Educated pt \T\ family on fall prevention, incl call for assistance when getting out of bed, Hourly rounding (assess needs \T\ fall precautionary measures) done. Nutritional screening: No deficits noted. Tuberculosis screening: No symptoms or risk factors identified. Assessment: 03:10 Reassessment: Patient and/or family updated on plan of care and expected duration. Pain ha1 level reassessed. Patient is alert, oriented x 3, equal unlabored respirations, skin warm/dry/pink. Vital Signs: 01:09 BP 129 / 81; Pulse 78; Resp 18 S; Temp 97.8(O); Pulse Ox 100% on R/A; Weight 56.7 kg; ha1 Height 5 ft. 3 in. ; 01:09 Body Mass Index 22.14 (56.70 kg, 160.02 cm) ha1 ED Course: 00:56 Patient arrived in ED. gm2 00:58 Niko Irvin PA-C is PHCP. cp 00:58 Neftali Florian DO is Attending Physician. cp 01:00 Patient has correct armband on for positive identification. ha1 01:17 Triage completed. ha1 01:48 Test, Urine Sent. ha1 01:48 UA Rfx Charanjit Cult if indicated Sent. ha1 03:00 No provider procedures requiring assistance completed. ha1 03:00 Patient did not have IV access during this emergency room visit. ha1 03:00 Provided Education on: follow ups . ha1 03:00 Arm band placed on right wrist. ha1 Administered Medications: No medications were administered Medication: 03:00 VIS not applicable for this client. ha1 Outcome: 02:40 Discharge ordered by . cp 03:00 Discharged to home ambulatory, ha1 03:00 Condition: stable 03:00 Discharge instructions given to patient, Instructed on discharge instructions, follow up and referral plans. medication usage, Demonstrated understanding of instructions, follow-up care, medications, 03:30 Patient left the ED. ha1 Signatures: Niko Irvin PA-C PA-C cp Ayala, Heidy, RN RN 1 Sagrario Melton gm2 Corrections: (The following items were deleted from the chart) 01:19 01:17 Allergies: No Known Allergies; ha1 ha1 03:36 03:36 Patient left the ED. ha1 ha1
[2025-03-30 11:14] VITALS: BP 129/81; TEMP 97.8; O2SAT 100
== END 2025-03-30 03:36 | disposition home or self-care (01) ==
LOC: ER 00:43
DX: R30.0 Dysuria (principal); M54.50 Low back pain, unspecified
CPT/HCPCS: 81001; 81025; 99283